=== PATIENT | male | born 1990 | race Caucasian/White ===

== ENCOUNTER 2019-11-01 20:41 | Emergency (ER) | payer OTHER ==
[2019-11-01] MEDS ORDERED: Acetaminophen TAB* 325 MG PO ONE (21:25)
[2019-11-01] MEDS ORDERED: Ondansetron INJ* 2 MG/ML VIAL IV ONE (21:27)
[2019-11-01] MEDS ORDERED: NS 0.9% 1000 ML** 1,000 ML IV ONE (21:27)
[2019-11-01 21:43] LABS: Hematocrit 43 % (42-52); Hemoglobin 15.6 g/dL (14.0-18.0); Mean Corpuscular HGB Conc 36 g/dL (31-36); Mean Corpuscular Hemoglobin 30 pg (27-31); Mean Corpuscular Volume 84 fL (80-94); Mean Platelet Volume 6.8 fL (7.4-10.4); Platelet Count 251 10^3/uL (150-450); Red Blood Count 5.15 10^6 /uL (4.18-5.48); Red Cell Distribution Width 13 % (10-15); White Blood Count 8.9 10^3/uL (3.5-10.8)
--- NOTE | 2019-11-01 21:43 | ED ---
HPI Febrile Illness - HPI Summary HPI Summary: 28 year old male presents to the ED with a chief complaint of headache and fever , starting yesterday. Patient was getting ready for work when he suddenly felt severe migraine headache and fever. He also reports cough, nausea, myalgia, diarrhea, bowel incontinence, vomiting, and loss of appetite. Patient smokes tobacco. He has not had a flu shot this year. PMHx of viral meningitis. Home Medications Medication Instructions Recorded Confirmed Type NK [No Home Medications Reported] 12/03/12 11/01/19 History - History of Current Complaint Chief Complaint: EDNauseaVomitDiarrh Time Seen by Provider: 11/01/19 21:37 Hx Obtained From: Patient Onset/Duration: Started Days Ago, Still Present Timing: Constant Temperature: 38.2 C Initial Severity: Moderate Current Severity: Moderate Pain Intensity: 6 Pain Scale Used: 0-10 Numeric Associated Signs and Symptoms: Cough, Diarrhea, Headache, Myalgia, Nausea, Vomiting, Other: - bowel incontinence - Allergy/Home Medications Allergies/Adverse Reactions: Allergies Allergy/AdvReac Type Severity Reaction Status Date / Time No Known Allergies Allergy Verified 11/01/19 21:20 Home Medications: Home Medications Ondansetron ODT TAB* [Zofran 4 MG Odt TAB*] 8 mg PO Q6H PRN #12 tab.odt [Rx] Oseltamivir CAP* [Tamiflu CAP*] 75 mg PO BID 5 Days #10 cap 11/01/19 [Rx] PMH/Surg Hx/FS Hx/Imm Hx Endocrine/Hematology History: Denies: Hx Diabetes Cardiovascular History: Denies: Hx Hypertension, Hx Pacemaker/ICD History: Denies: Hx Renal Disease Musculoskeletal History: Reports: Other Musculoskeletal History - L5 level "genetic broken back" Sensory History: Denies: Hx Hearing Aid Neurological History: Reports: Other Neuro Impairments/Disorders - ADHD, BIPOLAR DISORDER Psychiatric History: Denies: Hx Panic Disorder - Surgical History Surgery Procedure, Year, and Place: US assisted injection 2013 Infectious Disease History: No Infectious Disease History: Denies: History Other Infectious Disease, Traveled Outside the [place] in Last 30 Days - Social History Alcohol Use: Occasionally Substance Use Type: Reports: None Smoking Status (MU): Light Every Day Tobacco Smoker Type: Cigarettes Amount Used/How Often: 2 cigs daily and one tin per week Review of Systems Positive: Fever Positive: Cough Gastrointestinal: Other - bowel incontinence Positive: Abdominal Pain, Vomiting, Diarrhea, Nausea Positive: Myalgia Positive: Headache All Other Systems Reviewed And Are Negative: Yes Physical Exam - Summary Physical Exam Summary: Appearance: Well-appearing, Well-nourished, lying in bed comfortably Skin: Warm, dry, no obvious rash Eyes: sclera anicteric, no conjunctival pallor HENT: mucous membranes moist, pharynx appears normal Neck: Supple, nontender Respiratory: Clear to auscultation, no signs of respiratory distress Cardiovascular: Normal S1, S2. No murmurs. Normal distal pulses in tibial and radial bilaterally. Abdomen: Soft, nontender, normal active bowel sounds present Musculoskeletal: Normal, Strength/ROM Intact Neurological: A&Ox3, awake and alert, mentation is normal, speech is fluent and appropriate Psychiatric: affect is normal, does not appear anxious or depressed Triage Information Reviewed: Yes Vital Signs On Initial Exam: Initial Vitals Temp Pulse Resp BP Pulse Ox 100.8 F 93 15 127/90 96 11/01/19 20:45 11/01/19 20:45 11/01/19 20:45 11/01/19 20:45 11/01/19 20:45 Vital Signs Reviewed: Yes Procedures - Sedation Patient Received Moderate/Deep Sedation with Procedure: No Diagnostics - Vital Signs Vital Signs Temp Pulse Resp BP Pulse Ox 11/01/19 20:45 100.8 F 93 15 127/90 96 - Laboratory Result Diagrams: 11/01/19 21:35 11/01/19 21:35 Lab Statement: Any lab studies that have been ordered have been reviewed, and results considered in the medical decision making process. Course/Dx - Course Course Of Treatment: 28 year old male presents to the ED with a chief complaint of headache and fever, starting yesterday. Patient was getting ready for work when he suddenly felt severe migraine headache and fever. He also reports cough , nausea, myalgia, diarrhea, bowel incontinence, vomiting, and loss of appetite. Patient smokes tobacco. He has not had a flu shot this year. PMHx of viral meningitis. Physical exam is normal. Lab reveals Influenza A positive. Diagnosis is Influenza A. Patient will be discharged home with follow up with primary care provider. He is advised to not attend work for 1 week. Patient understands and agrees with this plan. - Diagnoses Provider Diagnoses: Influenza A Discharge ED - Sign-Out/Discharge Documenting (check all that apply): Patient Departure - Discharge Plan Condition: Stable Disposition: HOME Prescriptions: Ondansetron ODT TAB* [Zofran 4 MG Odt TAB*] 8 mg PO Q6H PRN #12 tab.odt PRN Reason: Nausea Oseltamivir CAP* [Tamiflu CAP*] 75 mg PO BID 5 Days #10 cap Patient Education Materials: Influenza (ED) Forms: *Work Release Referrals: Татьяна Ochoa MD [Primary Care Provider] - - Billing Disposition and Condition Condition: STABLE Disposition: Home - Attestation Statements Document Initiated by Scribe: Yes Documenting Scribe: Pankaj Gonsalves Provider For Whom Kip is Documenting (Include Credential): Dr. Satinder Hernandez Attestation: Pankaj Monaco, joeyibed for Dr. Satinder Carney on 11/03/19 at 0135. Scribe Documentation Reviewed: Yes Provider Attestation: The documentation as recorded by the Pankaj hernandez accurately reflects the service I personally performed and the decisions made by , Dr. Satinder Carney Status of Scribe Document: Viewed
[2019-11-01] MEDS ORDERED: Ibuprofen TAB* 400 MG PO ONE (21:45)
[2019-11-01 21:57] LABS: Albumin 4.7 g/dL (3.2-5.2); Albumin/Globulin Ratio 1.7 (1-3); BUN/Creatinine Ratio 12.6 (8-20); Calcium 9.8 mg/dL (8.6-10.3); EGFR African American 128.3 (>60); EGFR Non-African American 106.1 (>60); Globulin 2.8 g/dL (2-4); Potassium 4.2 mmol/L (3.5-5.0); Total Bilirubin 0.5 mg/dL (0.2-1.0); Total Protein 7.5 g/dL (6.4-8.9)
[2019-11-01 21:58] LABS: ABS Lymphocytes 0.8 10^3/ul (1.0-4.8); ABS Neutrophils 7.1 10^3/ul (1.5-7.7); Lymphocyte % 8.7 %
[2019-11-01 22:55] LABS: Influenza A Molecular POSITIVE (Negative)
[2019-11-01] MEDS ORDERED: Oseltamivir CAP* 75 MG CAP PO ONE (23:03)
[2019-11-01 23:21] VITALS: BP 124/76
== END 2019-11-01 23:20 | disposition home or self-care (01) ==
LOC: ED 20:41
DX: J10.1 Influenza due to other identified influenza virus with other respiratory manifestations (principal); R11.2 Nausea with vomiting, unspecified; F17.210 Nicotine dependence, cigarettes, uncomplicated
CPT/HCPCS: 36415; 80053; 85025; 96361; 96374; 99283; A9270-GY; J2405